=== PATIENT | male | born 1970 | race Caucasian/White ===

== ENCOUNTER 2021-04-04 14:18 | Inpatient (IN) | payer MEDICAID, SELFPAY ==
[2021-04-04] VITALS (71 sets, daily range): BP systolic 108–152; BP diastolic 57–74; PULSE 60–92; RESP 13–42; TEMP 36.2–37.9; O2SAT 91–97
--- NOTE | 2021-04-04 16:00 | DI.RAD_ITS ---
Exam(s) XR PORTABLE CHEST AP EXAM: XR PORTABLE CHEST AP CLINICAL HISTORY: fever, cough, pui. TECHNIQUE: 2D digital imaging was performed. COMPARISON: No exams were available for comparison FINDINGS: Heart size is upper normal. The mediastinum is not widened. There are extensive bilateral patchy infiltrates throughout both lungs. No obvious pleural effusions . No pneumothorax. IMPRESSION: Extensive bilateral patchy lung infiltrates. No pleural effusions. DATA REPOSITORY: RADIATION DOSE DELIVERED: All CT scans at this facility use at least one of these dose optimization techniques: automated exposure control; mA and/or kV adjustment per patient size (includes targeted e xams where dose is matched to clinical indication); or iterative reconstruction.
--- NOTE | 2021-04-04 16:00 | RT.EKG_ITS ---
APPROVED REPORT Exam: Resting ECG Reason for Exam: syncope Patient Location: E HR:73 bpm ECG Measurements Heart Rate 73 AXIS ND 145 P 55 QRSd 93 QRS 3 QT 377 T 21 QTc 416 Conclusion Sinus rhythm...normal P axis, V-rate 60- 99. Sinus. No STEMI. I have reviewed and interpreted ECG and agree with software generated interpretation.
--- NOTE | 2021-04-04 16:43 | ED.GENADUL_ITS ---
Discharge Plan Disposition Patient Disposition: [facility] INPATIENT Condition: Serious Discharge Details Chief Complaint: SOB Clinical Impression: COVID-19, Respiratory failure Admit Date/Time: 04/04/21 20:08 Admit Provider: Dayton Ponce Attending Provider: Dayton Ponce Primary Care Provider: Shirin Short ED Provider: Stephy Carroll Discharge Data Discharge Date/Time-TO BE ENTERED AT DEPARTURE: 04/04/21 21:28 Medical Decision Making Patient tolerating 1 L of oxygen, hype with ambulation 87% Will need admission for observation Alert, oriented, full CODE STATUS D-dimer 1710, CTA shows bilateral infiltrates with lymphadenitis likely consistent with COVID-19, no pulmonary embolism Diagnostic labs consistent with COVID-19 diagnosis, discussed with Dr. Weaver who is agreeable to admission Medical Records Medical records reviewed: Yes I reviewed the patient's medical records. Lab Data Lab results reviewed: Yes I reviewed the patient's lab results. HPI General Mode of arrival: ambulatory . Date/Time Provider Initiated Documentation: 04/04/21 15:09 . Limitations to Documentation: no limitations . Information obtained by: patient . HPI Narrative: Mass 51-year-old gentleman presents with cough, shortness of breath, fever, and loss of appetite. Symptoms started approximately 14 days ago. Brother sick with similar symptoms. 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 They are not vaccinated. Denies any hemoptysis. States he is unable to ambulate secondary to exertional dyspnea. Denies any current chest pain. Denies prior history of coagulopathy. Denies history of asthma or COPD. Denies recent flights, surgeries, long drives. Subjective fevers. Denies any urinary complaints. Has not attempted any [id number] medications. Does not smoke tobacco. Related Data Home Medications Medication Instructions Recorded Confirmed Unknown [No Known Home Meds] 04/04/21 04/04/21 Allergies Allergy/AdvReac Type Severity Reaction Status Date / Time No Known Allergies Allergy Unverified 04/04/21 14:46 General Stated Complaint: SOB PASCALE: 3 Review of Systems All systems reviewed & are unremarkable except as noted in HPI and below PFSH Social History Smoking/Tobacco Use Status: Never Smoking risk assessment performed?: Yes Alcohol Intake: never Drug use: Never Substance use type: does not use Do you feel safe at home: Yes Do you feel safe in your relationship?: Yes Exam Const General: cooperative, comfortable and no acute distress Orientation: alert and oriented x3 HENMT Mouth: oral mucosae normal Eyes Pupils: PERRL Neck Other: No meningismus Resp Effort & Inspection: normal respiratory effort Auscultation: clear to auscultation bilaterally Cardio Rate: regular rate Rhythm: regular rhythm Other: No murmur GI Inspection: normal to inspection Skin General skin exam: no rashes or lesions noted Neuro General: patient alert and patient oriented x3 Extrem General: normal to inspection Other: No peripheral edema distal pulses intact Course Vital Signs Vital signs: Vital Signs Temperature 36.7 C 04/04/21 14:40 Pulse 92 H 04/04/21 14:40 Respiratory Rate 16 04/04/21 14:40 Blood Pressure 109/73 04/04/21 14:40 Pulse Oximetry 94 04/04/21 14:40 Temperature 36.7 C 04/04/21 14:40 Temperature Source Tympanic 04/04/21 14:40 Pulse 92 H 04/04/21 14:40 Respiratory Rate 16 04/04/21 14:40 Respiratory Effort Non-Labored 04/04/21 14:45 Blood Pressure 109/73 04/04/21 14:40 Blood Pressure Position Sitting 04/04/21 14:40 Pulse Oximetry 94 04/04/21 14:40 Oxygen Delivery Method Room Air 04/04/21 14:40 Oxygen Flow Rate 0 04/04/21 14:40 Pain Level 5 04/04/21 14:40 Critical Care Time Critical Care Time Critical Care Time: Yes Total Critical Care Time: 40 Attestation: 1 L of oxygen, telemetry monitoring, medical surgical admission, diagnostic labs, CTA imaging, hospitalist consultation
[2021-04-04 17:09] LABS: Source Nasal/Nares
[2021-04-04 17:42] LABS: NT-proBNP 17 pg/mL (<300); Troponin I < 0.05 ng/mL (<0.06)
[2021-04-04] MEDS: Dexamethasone 4 MG/ML VIAL 6 MG IVP (17:42)
--- NOTE | 2021-04-04 17:45 | DI.CT_ITS ---
Exam(s) CT CHEST PE CTA EXAM: CT CHEST PE CTA CLINICAL HISTORY: PE, hypoxia, covid. TECHNIQUE: Imaging Protocol: CT angiography of the chest was performed using pulmonary embolus eva col. Multi planar reconstructions were performed. CONTRAST MATERIAL: Intravenous: Omnipaque 350 Contrast volume: 100 cc COMPARISON: No exams were available for comparison FINDINGS: CHEST: PULMONARY ARTERIES: There are no intraluminal filling defects to suggest acute pulmonary emboli. LUNGS: There are relatively symmetrical patchy bilateral infiltrates throughout all segments of both lungs. . No associated pleural effusions. MEDIASTINUM: No obvious hilar adenopathy. Slightly enlarged subcarinal lymph nodes are noted. Visua lized thyroid unremarkable. CARDIAC: Heart size is upper normal. There is no pericardial effusion.Caliber of the thoracic aorta is within normal limits. No dissection. There is no significant shift of the interventricular septum . PARTIALLY VISUALIZED UPPERMOST ABDOMEN: No obvious findings OSSEOUS: No significant osseous lesions.. IMPRESSION: 1. No evidence of acute pulmonary emboli. No evidence of pulmonary infarction.No pleural effusions. 2. The main finding here is extensive bilateral patchy infiltrates which are suspicious for Covid-19 pneumonia. 3. Mildly enlarged subcarinal lymph nodes noted. RADIATION DOSE DELIVERED: 619.53mGy.cm Total DLP DATA REPOSITORY: All CT scans at this facility are submitted to the National Radiology Data Registry (NRDR) Dose Index Registry (DIR) with the [employer] ([employer]). RADIATION OPTIMIZATION: All CT scans at this facility use at least one of these dose optimization te chniques: automated exposure control; mA and/or kV adjustment per patient size (includes targeted exa ms where dose is matched to clinical indication); or iterative reconstruction.
[2021-04-04 17:51] LABS: C-Reactive Protein 5.26 mg/dL (0.0-0.3)
[2021-04-04 17:55] LABS: D-Dimer 1710 ng/mlFEU (<500)
[2021-04-04 18:01] LABS: COVID-19 PCR POSITIVE (Negative)
--- NOTE | 2021-04-04 18:35 | DI.VRAD_ITS ---
PROCEDURE INFORMATION: Exam: XR Chest Exam date and time: 04/04/2021 4:12 PM Age: 51 years old Clinical indication: Other: Fever, cough, pui TECHNIQUE: Imaging protocol: XR of the chest. Views: 1 view. COMPARISON: No relevant prior studies available. FINDINGS: Lungs: Bilateral infiltrative lung disease. Patchy areas of airspace consolidation consistent with a bilateral pneumonitis. Pleural spaces: No pleural effusion. Heart/Mediastinum: Normal heart size. Bones/joints: Degenerative thoracic spine disease. IMPRESSION: 1. Bilateral patchy subsegmental airspace opacifications consistent with a bilateral pneumonitis. 2. No pleural effusions. 3. Degenerative thoracic spine disease. Dictated and Authenticated by: Nicolas Abbott MD. Ordering:ROCK Keyes MD
[2021-04-04 18:39] LABS: Ferritin > 2000 ng/mL (26-388)
[2021-04-04 18:49] LABS: Abs Immature Grans 0.04 10^3/uL (0.0-0.06); HCT 45.6 % (40.0-50.0); HGB 15.2 g/dL (13.5-17.5); MCH 27.9 pg (27.0-33.0); MCHC 33.3 % (32.0-36.0); MCV 83.7 fL (80-95); MPV 10.8 fL (8.0-11.0); Nucleated RBC 0 %; Platelet Count 240 10^3/uL (130-400); RBC 5.45 10^6/uL (4.36-5.78); RDW 12.1 % (11.8-14.1); RDW-SD 36.6 fL; WBC 5.62 10^3/uL (4.4-10.8)
[2021-04-04] MEDS: Omnipaque 350 MG/ML 100 ML BTL IJ (18:54)
[2021-04-04 18:57] LABS: ALT 75 U/L (16-63); AST 77 U/L (15-37); Albumin 3.2 g/dL (3.4-5.0); Alkaline Phosphatase 88 U/L (46-116); Anion Gap 10.8 mmol/L (3-11); BUN 14 mg/dL (7-18); Bilirubin, Total 0.7 mg/dL (0.2-1.0); CO2 28.2 mmol/L (21.0-32.0); CREATININE 1.2 mg/dL (0.70-1.30); Calcium 8.7 mg/dL (8.5-10.1); Chloride 99 mmol/L (98-107); Glucose 96 mg/dL (74-106); Magnesium 2.4 mg/dL (1.8-2.4); Potassium 3.5 mmol/L (3.5-5.1); Sodium 138 mmol/L (136-145); Total Protein 8.4 g/dL (6.4-8.2)
[2021-04-04] MEDS: Normal Saline Flush 10 ML SYR IVP (19:21)
[2021-04-04 19:26] LABS: Absolute Lymphocyte Count 1.18 10^3/uL (1.2-3.4); Absolute Monocyte Count 0.22 10^3/uL (0.1-0.8); Absolute Neutrophil Count 4.22 10^3/uL (1.2-6.7); Atypical Lymphocytes % 3
[2021-04-04 19:27] LABS: Diff Comment Manual Differential; RBC Morphology Normal
--- NOTE | 2021-04-04 19:43 | DI.VRAD_ITS ---
PROCEDURE INFORMATION: Exam: CTA Chest With Contrast Exam date and time: 04/04/2021 5:58 PM Age: 51 years old Clinical indication: Patient HX: Pe, hypoxia, covid TECHNIQUE: Imaging protocol: Computed tomographic angiography of the chest with contrast. 3D rendering (Not supervised by radiologist): MIP and/or 3D reconstructed images were created by the technologist. Radiation optimization: All CT scans at this facility use at least one of these dose optimization techniques: automated exposure control; mA and/or kV adjustment per patient size (includes targeted exams where dose is matched to clinical indication); or iterative reconstruction. Contrast material: OMNIPAQUE 350; Contrast volume: 100 ml; Contrast route: INTRAVENOUS (IV); COMPARISON: CR XR PORTABLE CHEST AP 04/04/2021 5:47 PM FINDINGS: Pulmonary arteries: Pulmonary arteries well opacified. No embolism. Aorta: Thoracic aorta is normal in course and caliber. Lungs: Bilateral diffuse airspace changes with the pattern that could represent COVID-19 pneumonitis. This is of moderate severity. Pleural spaces: No pleural effusion. Heart: Mild cardiac enlargement. No pericardial effusion. Lymph nodes: Right hilar lymph node nonspecific in appearance slightly enlarged at 17 x 12 mm. An additional right hilar lymph node measures 17 x 15 mm. Subcentimeter AP window lymph nodes and left hilar lymph nodes. Bones/joints: Degenerative thoracic spine. No acute fracture. Soft tissues: Unremarkable. IMPRESSION: 1. Bilateral pneumonitis. 2. No pulmonary arterial embolism. 3. No pleural effusion. 4. Mild cardiac enlargement no pericardial effusion. 5. Nonspecific mild right hilar lymph node enlargement. Dictated and Authenticated by: Nicolas Abbott MD. Ordering:ROCK Keyes MD
--- NOTE | 2021-04-04 21:12 | W.PM.HP.N ---
Date of service: 04/04/21 Time of Service: 21:12 Assessment and Plan Assessment and plan (1) COVID-19: Status: Acute Assessment and plan: + Covid-19 pneumonia. Requiring increased supplemental O2 via NC overnight; now on 4L. Encourage proning. Pulmonary consulted. Dexamethasone 6mg IV daily initiated. Remdesivir 200mg IV administered initially, then 100mg IV dialy. Baricitinib 4mg po daily. Vit C, Vit D, zinc supplementation. (2) Respiratory failure: Status: Acute Assessment and plan: Currently stable on supplemental O2 via NC. History of Present Illness History of Present Illness Chief Complaint: Shortness of breath Narrative: This is a 51-year-old male with no reported PMH. He presented to the ED with c/o shortness of breath, cough, fever and loss of appetite; onset of symptoms appx 14 days prior. He endorsed exposure to person who was COVID-19 positive (an employee of the [employer]) His brother presented at the same time and was admitted for COVID-19 pneumonia. He is not vaccinated for COVID-19. He endorsed inability to ambulate secondary to exertional dyspnea. No CP. Denied prior history of coagulopathy. Subjective fevers. He denied smoking tobacco. His initial RA O2 saturation was 91%; decreased into the upper 80's with ambulation. With 1L of supplemental O2 his O2 saturations improved to the mid 90's and he felt less SOA. He tested positive for SARS-CoV-2. Inflammatory markers were elevated. CTA chest showed bilateral infiltrates with lymphadenitis likely consistent with COVID-19, no pulmonary embolism Review of Systems All systems reviewed & are unremarkable except as noted in HPI and below PFSH Social History Smoking/Tobacco Use Status: Never Smoking risk assessment performed?: Yes Alcohol Intake: never Drug use: Never Substance use type: does not use Do you feel safe at home: Yes Do you feel safe in your relationship?: Yes Meds Allergies and Home Medications Allergies Allergy/AdvReac Type Severity Reaction Status Date / Time No Known Allergies Allergy Unverified 04/04/21 14:46 Home Medications Medication Instructions Recorded Confirmed Type Unknown [No Known Home Meds] 04/04/21 04/04/21 History Exam Narrative Exam Narrative: Lying supine. Const General: cooperative, no acute distress and ill appearing Nutritional Appearance: obese Orientation: alert and oriented x3 HENMT Head: normocephalic Ears: hearing grossly normal bilaterally Eyes General: appearance normal, both eyes and all related structures Sclera: sclerae normal Resp Effort & Inspection: normal respiratory effort Auscultation: clear to auscultation bilaterally Cardio Rate: regular rate Rhythm: regular rhythm Heart Sounds: S1 normal and S2 normal GI Inspection: obesity Palpation: soft and nontender Auscultation: normal bowel sounds Skin General skin exam: no rashes or lesions noted Neuro General: no focal motor deficits Cranial Nerves: facial strength normal Cognition: normal cognition Speech: speech normal Extrem General: no pedal edema and no calf tenderness Results Labs Result diagrams: 04/04/21 17:15 04/04/21 17:15 Labs: Laboratory Results - last 24 hr 04/04/21 04/04/21 04/04/21 16:42 17:04 17:15 WBC RBC Hgb Hct MCV MCH MCHC RDW Plt Count MPV Immature Gran % Neutrophils % Lymphocytes % Atypical Lymphs % Monocytes % Eosinophils % Basophils % Nucleated RBC % Absolute Neutrophils Absolute Lymphocytes Absolute Monocytes Absolute Eosinophils Absolute Basophils RBC Morphology D-Dimer Sodium 138 Potassium 3.5 Chloride 99 Carbon Dioxide 28.2 Anion Gap 10.8 BUN 14 Creatinine 1.2 Estimated GFR/1.73 m2 >= 60.00 Glucose 96 Calcium 8.7 Magnesium 2.4 Ferritin > 2000 H Total Bilirubin 0.7 AST 77 H ALT 75 H Alkaline Phosphatase 88 Troponin I C-Reactive Protein 5.26 H NT-Pro-B Natriuret Pep Total Protein 8.4 H Albumin 3.2 L COVID-19 Source Nasal/Nares SARS-CoV-2 (PCR) POSITIVE A* 04/04/21 04/04/21 04/04/21 17:15 17:15 17:15 WBC 5.62 RBC 5.45 Hgb 15.2 Hct 45.6 MCV 83.7 MCH 27.9 MCHC 33.3 RDW 12.1 Plt Count 240 MPV 10.8 Immature Gran % 0.0 Neutrophils % 75.0 Lymphocytes % 18.0 Atypical Lymphs % 3 Monocytes % 4.0 Eosinophils % 0.0 Basophils % 0.0 Nucleated RBC % 0 Absolute Neutrophils 4.22 Absolute Lymphocytes 1.18 L Absolute Monocytes 0.22 Absolute Eosinophils 0.00 Absolute Basophils 0.00 RBC Morphology Normal D-Dimer 1710 H Sodium Potassium Chloride Carbon Dioxide Anion Gap BUN Creatinine Estimated GFR/1.73 m2 Glucose Calcium Magnesium Ferritin Total Bilirubin AST ALT Alkaline Phosphatase Troponin I < 0.05 C-Reactive Protein NT-Pro-B Natriuret Pep Total Protein Albumin COVID-19 Source SARS-CoV-2 (PCR) 04/04/21 17:15 WBC RBC Hgb Hct MCV MCH MCHC RDW Plt Count MPV Immature Gran % Neutrophils % Lymphocytes % Atypical Lymphs % Monocytes % Eosinophils % Basophils % Nucleated RBC % Absolute Neutrophils Absolute Lymphocytes Absolute Monocytes Absolute Eosinophils Absolute Basophils RBC Morphology D-Dimer Sodium Potassium Chloride Carbon Dioxide Anion Gap BUN Creatinine Estimated GFR/1.73 m2 Glucose Calcium Magnesium Ferritin Total Bilirubin AST ALT Alkaline Phosphatase Troponin I C-Reactive Protein NT-Pro-B Natriuret Pep 17 Total Protein Albumin COVID-19 Source SARS-CoV-2 (PCR) Last Vital Signs Temp 36.2 C L 04/04/21 17:02 Pulse 72 04/04/21 20:35 Resp 35 H 04/04/21 20:35 BP 118/63 04/04/21 20:35 Pulse Ox 94 04/04/21 20:35
[2021-04-04] MEDS: Enoxaparin 40 MG/0.4 ML SYR SC (21:57)
[2021-04-05] VITALS (14 sets, daily range): BP systolic 98–118; BP diastolic 55–72; PULSE 52–67; RESP 16–20; TEMP 36–36.5; O2SAT 89–95
[2021-04-05] MEDS: Normal Saline Flush 10 ML SYR IVP ×3 (04:20→09:43)
[2021-04-05 07:28] LABS: Abs Immature Grans 0.04 10^3/uL (0.0-0.06); Absolute Basophil Count 0.01 10^3/uL (0.0-0.2); Absolute Lymphocyte Count 0.67 10^3/uL (1.2-3.4); Absolute Monocyte Count 0.16 10^3/uL (0.1-0.8); Absolute Neutrophil Count 3.16 10^3/uL (1.2-6.7); Basophils % 0.2; HCT 41.5 % (40.0-50.0); Lymphocytes % 16.6; MCH 28.3 pg (27.0-33.0); MCHC 33.7 % (32.0-36.0); MPV 10.2 fL (8.0-11.0); Neutrophils % 78.2; Nucleated RBC 0 %; Platelet Count 254 10^3/uL (130-400); RBC 4.94 10^6/uL (4.36-5.78); RDW 12.1 % (11.8-14.1); RDW-SD 36.5 fL; WBC 4.04 10^3/uL (4.4-10.8)
[2021-04-05 07:36] LABS: ALT 72 U/L (16-63); AST 68 U/L (15-37); Albumin 2.6 g/dL (3.4-5.0); Alkaline Phosphatase 78 U/L (46-116); Anion Gap 9.2 mmol/L (3-11); BUN 19 mg/dL (7-18); Bilirubin, Total 0.6 mg/dL (0.2-1.0); C-Reactive Protein 4.56 mg/dL (0.0-0.3); CO2 27.8 mmol/L (21.0-32.0); CREATININE 0.8 mg/dL (0.70-1.30); Calcium 8.4 mg/dL (8.5-10.1); Chloride 102 mmol/L (98-107); Glucose 128 mg/dL (74-106); Potassium 3.6 mmol/L (3.5-5.1); Sodium 139 mmol/L (136-145); Total Protein 7.4 g/dL (6.4-8.2)
[2021-04-05 07:49] LABS: Diff Comment Agrees w/ Instrument; RBC Morphology Normal
[2021-04-05 07:53] LABS: D-Dimer 1373 ng/mlFEU (<500)
[2021-04-05 08:24] LABS: Ferritin > 2000 ng/mL (26-388)
[2021-04-05] MEDS: Cholecalciferol (Vitamin D3) 1,000 UNIT TAB 2000 UNITS PO (08:40)
[2021-04-05] MEDS: Zinc Sulfate 220 MG TAB PO (08:40)
[2021-04-05] MEDS: Polyethylene Glycol 3350 17 GM PACKET PO (08:41)
[2021-04-05] MEDS: Ascorbic Acid 500 MG TAB 1000 MG PO ×2 (08:41→19:41)
[2021-04-05] MEDS: Dexamethasone 10 MG/ML VIAL 6 MG IVP (08:41)
[2021-04-05 09:36] LABS: Procalcitonin < 0.1 ng/mL
[2021-04-05] MEDS: Famotidine 20 MG TAB PO ×2 (09:43→19:42)
[2021-04-05] MEDS: cefTRIAXone 1 GM/50 ML BAG IVPB (09:43)
[2021-04-05] MEDS: Doxycycline Hyclate 100 MG CAP PO ×2 (09:43→19:42)
--- NOTE | 2021-04-05 15:47 | PGE_ITS ---
Date of Service Date of service: 04/05/21 Time of Service: 15:48 Assessment and Plan Assessment and plan (1) COVID-19: Status: Acute Assessment and plan: + Covid-19 pneumonia. Requiring increased supplemental O2 via NC; now on 4L. Encourage proning. Dexamethasone 6mg IV daily initiated. Remdesivir 200mg IV administered initially, then 100mg IV dialy. Baricitinib 4mg po daily. Vit C, Vit D, zinc supplementation. Atorvastatin 40 mg daily Pepcid 20 mg bid Ceftriaxone 1 gm daily and doxycycline 100 mg bid; if serial procalcitonin levels are negative then will dc his antibiotics prophylaxis dosing of lovenox 40 mg SC daily (2) Respiratory failure: Status: Acute Assessment and plan: Currently stable on supplemental O2 via NC. 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 He feels somewhat better today. he is not dyspneic at rest. He has minimal cough. No sputum production and he is afebrile. He is on oxygen at 4 to 5 LPM per NC. he is able to converse in complete sentences w/out getting dyspneic. He has been using his IS religously. He has been attempting to roll from side to side. I encouraged him to sit up out of bed whenever he is awake and to avoid lying on his back and to prone if he is able to do so. He asked me what my opinion of the vaccines. I explained to him that the vaccine do a good job of preventing COVID-19 and in the cases where people who are vaccinated do get infected, the vaccines usually prevent serious illness and . I also indicated that if society were doing a better job of practicing masking and social distancing that this would help to reduce the spread of the virus. I explained to him the various medications we are using to help fight his viral pneumonia and the inflammation involved. Exam Narrative Exam Narrative: Obese white male who is sitting up in bed in semi-cade position. I encouraged him to sit fully upright w/ his legs dangling over the bed or to sit up in the chair but if he is going to lie in bed then to prone Lungs: bibasilar rales Heart: RRR Abdomen: obese, soft, nontender Extremities: no edema or cyanosis. Objective Last Vital Signs Temp 36.2 C L 04/05/21 08:48 Pulse 62 04/05/21 08:48 Resp 20 04/05/21 08:48 BP 114/67 04/05/21 08:48 Pulse Ox 93 04/05/21 12:23 Laboratory Results - last 24 hr 04/04/21 04/04/21 04/04/21 16:42 17:04 17:15 WBC RBC Hgb Hct MCV MCH MCHC RDW Plt Count MPV Immature Gran % Neutrophils % Lymphocytes % Atypical Lymphs % Monocytes % Eosinophils % Basophils % Nucleated RBC % Absolute Neutrophils Absolute Lymphocytes Absolute Monocytes Absolute Eosinophils Absolute Basophils RBC Morphology D-Dimer Sodium 138 Potassium 3.5 Chloride 99 Carbon Dioxide 28.2 Anion Gap 10.8 BUN 14 Creatinine 1.2 Estimated GFR/1.73 m2 >= 60.00 Glucose 96 Calcium 8.7 Magnesium 2.4 Ferritin > 2000 H Total Bilirubin 0.7 AST 77 H ALT 75 H Alkaline Phosphatase 88 Troponin I C-Reactive Protein 5.26 H NT-Pro-B Natriuret Pep Total Protein 8.4 H Albumin 3.2 L Procalcitonin COVID-19 Source Nasal/Nares SARS-CoV-2 (PCR) POSITIVE A* 04/04/21 04/04/21 04/04/21 17:15 17:15 17:15 WBC 5.62 RBC 5.45 Hgb 15.2 Hct 45.6 MCV 83.7 MCH 27.9 MCHC 33.3 RDW 12.1 Plt Count 240 MPV 10.8 Immature Gran % 0.0 Neutrophils % 75.0 Lymphocytes % 18.0 Atypical Lymphs % 3 Monocytes % 4.0 Eosinophils % 0.0 Basophils % 0.0 Nucleated RBC % 0 Absolute Neutrophils 4.22 Absolute Lymphocytes 1.18 L Absolute Monocytes 0.22 Absolute Eosinophils 0.00 Absolute Basophils 0.00 RBC Morphology Normal D-Dimer 1710 H Sodium Potassium Chloride Carbon Dioxide Anion Gap BUN Creatinine Estimated GFR/1.73 m2 Glucose Calcium Magnesium Ferritin Total Bilirubin AST ALT Alkaline Phosphatase Troponin I < 0.05 C-Reactive Protein NT-Pro-B Natriuret Pep Total Protein Albumin Procalcitonin COVID-19 Source SARS-CoV-2 (PCR) 04/04/21 04/05/21 04/05/21 17:15 06:30 06:30 WBC 4.04 L RBC 4.94 Hgb 14.0 Hct 41.5 MCV 84.0 MCH 28.3 MCHC 33.7 RDW 12.1 Plt Count 254 MPV 10.2 Immature Gran % 1.0 Neutrophils % 78.2 Lymphocytes % 16.6 Atypical Lymphs % Monocytes % 4.0 Eosinophils % 0.0 Basophils % 0.2 Nucleated RBC % 0 Absolute Neutrophils 3.16 Absolute Lymphocytes 0.67 L Absolute Monocytes 0.16 Absolute Eosinophils 0.00 Absolute Basophils 0.01 RBC Morphology Normal D-Dimer Sodium 139 Potassium 3.6 Chloride 102 Carbon Dioxide 27.8 Anion Gap 9.2 BUN 19 H Creatinine 0.8 Estimated GFR/1.73 m2 >= 60.00 Glucose 128 H Calcium 8.4 L Magnesium Ferritin > 2000 H Total Bilirubin 0.6 AST 68 H ALT 72 H Alkaline Phosphatase 78 Troponin I C-Reactive Protein 4.56 H NT-Pro-B Natriuret Pep 17 Total Protein 7.4 Albumin 2.6 L Procalcitonin COVID-19 Source SARS-CoV-2 (PCR) 04/05/21 04/05/21 06:30 06:30 WBC RBC Hgb Hct MCV MCH MCHC RDW Plt Count MPV Immature Gran % Neutrophils % Lymphocytes % Atypical Lymphs % Monocytes % Eosinophils % Basophils % Nucleated RBC % Absolute Neutrophils Absolute Lymphocytes Absolute Monocytes Absolute Eosinophils Absolute Basophils RBC Morphology D-Dimer 1373 H Sodium Potassium Chloride Carbon Dioxide Anion Gap BUN Creatinine Estimated GFR/1.73 m2 Glucose Calcium Magnesium Ferritin Total Bilirubin AST ALT Alkaline Phosphatase Troponin I C-Reactive Protein NT-Pro-B Natriuret Pep Total Protein Albumin Procalcitonin < 0.1 COVID-19 Source SARS-CoV-2 (PCR)
--- NOTE | 2021-04-05 16:27 | INITIAL_ITS ---
- If Service Date Differs Date of service: 04/05/21 Time of Service: 16:28 Care Management Initial Assess REASON FOR HOSPITALIZATION:: Covid-19 Pneumonia PAST MEDICAL HISTORY/PAST SURGICAL HISTORY:: No significant medical history noted in chart. 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 He works with his brother, Judah, and his son. He lives with his son, daughter in law and their two children who are 2 and 3 years old. He is independent at baseline. CURRENT FUNCTIONAL STATUS:: Billy is on Covid 19 precautions, therefore CM was not able to meet with him in person. CM talked to him over the phone. He stated that he is feeling better today, and is working hard to use his IS in the room, as he was instructed. He stated that he is sitting up in his chair. CM discussed proning, if he lays down, as recommended. Per RN, he is very anxious to return home to his farm as three out of the four people who work there are currently sick with Covid. Billy asked about his brother, who is currently admitted to the ICU. Billy asked to update his HIPAA, which CM asked his RN to bring in to him. CM will continue to follow. ADVANCE DIRECTIVES:: Not on file. Has patient been provided with info about the portal/API?: Yes Did the patient sign up for the portal?: No CODE STATUS:: Full Code INSURANCE COVERAGE / FINANCIAL ISSUES:: [employer] CURRENT HOME/COMMUNITY SERVICES/EQUIPMENT:: No current services or equipment. PRIMARY CARE PHYSICIAN:: Shirin Short POTENTIAL DISCHARGE NEEDS:: Follow up appointments. PATIENT/FAMILY EDUCATION NEEDS:: Review discharge instructions regarding activity levels and medications, discussion of self care needs including ask me three. ANTICIPATED BARRIERS TO DISCHARGE:: Oxygen requirements, no O2 at baseline. TRANSPORTATION:: Private vehicle by family. PLAN:: Anticipate Billy will return home with no new services once he is medically cleared by MD. His family will transport him home via private vehicle. He will follow up with his PCP and discharge plan of care. CM will continue to follow.
[2021-04-05 17:28] LABS: Bilirubin Negative (Negative); Blood Trace-intact (Negative); Clarity Clear (Clear); Glucose Negative (Negative); Ketones Negative (Negative); Leukocyte Esterase Negative (Negative); Nitrite Negative (Negative); Specific Gravity 1.025 (1.005-1.025); pH 6.5 (5-8)
[2021-04-05 17:30] LABS: Bacteria Negative HPF (Negative); C & S Indicated? No; Casts Negative LPF (Negative); Crystals Negative HPF (Negative); Epithelial Cells Negative HPF (Negative); Mucus Negative (Negative); Other Cells Negative (Negative); RBC Negative HPF (0-2)
[2021-04-05] MEDS: Atorvastatin 40 MG TAB PO (19:41)
[2021-04-05] MEDS: Enoxaparin 40 MG/0.4 ML SYR SC (21:57)
[2021-04-06 01:44] LABS: Vitamin D 25 Total 9.6 ng/mL (30-100)
[2021-04-06 03:51] VITALS: BP 102/63; PULSE 57; RESP 16; TEMP 36.3; O2SAT 95
[2021-04-06 07:00] VITALS: PULSE 52
[2021-04-06 07:30] VITALS: O2SAT 94
[2021-04-06 07:46] VITALS: BP 94/52; PULSE 55; RESP 18; TEMP 35.6; O2SAT 94
[2021-04-06 07:46] LABS: Abs Immature Grans 0.05 10^3/uL (0.0-0.06); Absolute Basophil Count 0.02 10^3/uL (0.0-0.2); Absolute Eosinophil Count 0.01 10^3/uL (0.0-0.7); Absolute Lymphocyte Count 1.24 10^3/uL (1.2-3.4); Absolute Monocyte Count 0.31 10^3/uL (0.1-0.8); Basophils % 0.4; Eosinophils % 0.2; HGB 13.6 g/dL (13.5-17.5); Immature Grans % 0.9; MCH 28.2 pg (27.0-33.0); Monocytes % 5.5; Nucleated RBC 0 %; Platelet Count 263 10^3/uL (130-400); RBC 4.82 10^6/uL (4.36-5.78); RDW-SD 36.6 fL; WBC 5.63 10^3/uL (4.4-10.8)
[2021-04-06] MEDS: Polyethylene Glycol 3350 17 GM PACKET PO (07:50)
[2021-04-06] MEDS: Zinc Sulfate 220 MG TAB PO (07:50)
[2021-04-06] MEDS: Cholecalciferol (Vitamin D3) 1,000 UNIT TAB 2000 UNITS PO (07:50)
[2021-04-06] MEDS: Doxycycline Hyclate 100 MG CAP PO ×2 (07:50→22:28)
[2021-04-06] MEDS: cefTRIAXone 1 GM/50 ML BAG IVPB (07:50)
[2021-04-06] MEDS: Ascorbic Acid 500 MG TAB 1000 MG PO ×2 (07:51→22:27)
[2021-04-06] MEDS: Normal Saline Flush 10 ML SYR IVP (07:51)
[2021-04-06] MEDS: Famotidine 20 MG TAB PO ×2 (07:51→22:28)
[2021-04-06] MEDS: Dexamethasone 10 MG/ML VIAL 6 MG IVP (07:51)
[2021-04-06 08:06] LABS: ALT 84 U/L (16-63); AST 66 U/L (15-37); Albumin 2.6 g/dL (3.4-5.0); Alkaline Phosphatase 72 U/L (46-116); Anion Gap 7.4 mmol/L (3-11); BUN 17 mg/dL (7-18); Bilirubin, Total 0.5 mg/dL (0.2-1.0); C-Reactive Protein 1.81 mg/dL (0.0-0.3); CO2 27.6 mmol/L (21.0-32.0); CREATININE 0.8 mg/dL (0.70-1.30); Calcium 8.2 mg/dL (8.5-10.1); Chloride 102 mmol/L (98-107); Glucose 103 mg/dL (74-106); Potassium 4.1 mmol/L (3.5-5.1); Sodium 137 mmol/L (136-145); Total Protein 6.4 g/dL (6.4-8.2)
[2021-04-06 08:07] LABS: Troponin I < 0.05 ng/mL (<0.06)
[2021-04-06 08:25] LABS: D-Dimer 849 ng/mlFEU (<500)
[2021-04-06 08:53] LABS: Ferritin 1936 ng/mL (26-388)
[2021-04-06 09:56] LABS: HBs Antibody, Qual Negative (See Note); HBs Antibody, Quant <3.1 mIU/mL (See Note); Hepatitis B Core Antibody Negative (Negative); Hepatitis B surface Ag Negative (Negative); Hepatitis C Ab w Rflx HCV PCR Negative (Negative)
--- NOTE | 2021-04-06 12:40 | PDOC.CMPRO ---
- If Service Date Differs Date of service: 04/06/21 Time of Service: 12:40 Care Management Progress Note S/O: ESTHELA spoke to Billy over the phone today, as he remains on Covid 19 precautions. He reported that he is still on supplemental O2, but that it has been weaned down today. Per report, he was on 4L nasal canula yesterday, unclear what setting it is currently on. Billy asked how long his hospital course is expected to be. CM stated that his participation in treatment is a contributing factor to his recovery including using his IS, moving, proning, etc. He stated that he is compliant with any treatment recommended, as he is anxious to return home. He reports feeling better than when he arrived. CM will continue to follow. A: Luna is a 51 year old male admitted to [facility] on 04/04/21 with Covid 19 Pneumonia. P: Anticipate Billy will return home with no new services once he is medically cleared by . His family will transport him home via private vehicle. He will follow up with his PCP and discharge plan of care. CM will continue to follow.
[2021-04-06 15:01] VITALS: PULSE 63
--- NOTE | 2021-04-06 19:06 | W.PM.PROGNOT ---
Date of Service Date of service: 04/06/21 Time of Service: 19:06 Assessment and Plan Assessment and plan (1) COVID-19: Status: Acute Assessment and plan: + Covid-19 pneumonia. Requiring increased supplemental O2 via NC; now on 5L. Encourage proning. Dexamethasone 6mg IV daily Remdesivir 100mg IV dialy. Baricitinib 4mg po daily. Vit C, Vit D, zinc supplementation. Atorvastatin 40 mg daily Pepcid 20 mg bid Ceftriaxone 1 gm daily and doxycycline 100 mg bid; if serial procalcitonin levels are negative then will dc his antibiotics prophylaxis dosing of lovenox 40 mg SC daily (2) Respiratory failure: Status: Acute Assessment and plan: Currently stable on supplemental O2 via NC. Qualifiers: Chronicity: acute Respiratory failure complication: hypoxia Qualified Code(s): J96.01 - Acute respiratory failure with hypoxia (3) PSVT (paroxysmal supraventricular tachycardia): Status: Acute Assessment and plan: related to hypoxemia and hyperventilation. continue to monitor telemetry while hospitalized Subjective Subjective Interval history since last seen: Luna is doing better today has been practicing proning as well as frequent use of his incentive spirometer he has been sitting up in chair as much as possible. He remains on supplemental oxygen at 5 LPM NC but has not needed HFNC or CPAP. He initally was coughing up some mucous but none now. He had a run of wide complex tachycardia that appeared to be SVT w/ aberrancy. It was short run and asymptomatic and associate w/ him hyperventilating while doing his I.S repeatedly Exam Narrative Exam Narrative: alert and oriented x 3, no respiratory distress, able to talk in complete paragraphs Lungs: clear except for some fine rales at bases posteriorly Heart: RRR Abdomen: benign Legs: no edema Objective Last Vital Signs Temp 35.6 C L 04/06/21 07:46 Pulse 63 04/06/21 15:01 Resp 18 04/06/21 07:46 BP 94/52 L 04/06/21 07:46 Pulse Ox 94 04/06/21 07:46 Laboratory Results - last 24 hr 04/05/21 04/05/21 04/06/21 06:30 06:30 07:18 WBC RBC Hgb Hct MCV MCH MCHC RDW Plt Count MPV Immature Gran % Neutrophils % Lymphocytes % Monocytes % Eosinophils % Basophils % Nucleated RBC % Absolute Neutrophils Absolute Lymphocytes Absolute Monocytes Absolute Eosinophils Absolute Basophils D-Dimer Sodium 137 Potassium 4.1 Chloride 102 Carbon Dioxide 27.6 Anion Gap 7.4 BUN 17 Creatinine 0.8 Estimated GFR/1.73 m2 >= 60.00 Glucose 103 Calcium 8.2 L Ferritin 1936 H Total Bilirubin 0.5 AST 66 H ALT 84 H Alkaline Phosphatase 72 Troponin I < 0.05 C-Reactive Protein 1.81 H Total Protein 6.4 Albumin 2.6 L 25-OH Vitamin D Total 9.6 L Hep Bs Antigen Negative Hep Bs Antibody Negative Hep Bs Antibody, Quant <3.1 Hep B Core Total Ab Negative Hepatitis C Antibody Negative 04/06/21 04/06/21 07:18 07:18 WBC 5.63 D RBC 4.82 Hgb 13.6 Hct 40.0 MCV 83.0 MCH 28.2 MCHC 34.0 RDW 12.0 Plt Count 263 MPV 10.0 Immature Gran % 0.9 Neutrophils % 71.0 Lymphocytes % 22.0 Monocytes % 5.5 Eosinophils % 0.2 Basophils % 0.4 Nucleated RBC % 0 Absolute Neutrophils 4.00 Absolute Lymphocytes 1.24 Absolute Monocytes 0.31 Absolute Eosinophils 0.01 Absolute Basophils 0.02 D-Dimer 849 H Sodium Potassium Chloride Carbon Dioxide Anion Gap BUN Creatinine Estimated GFR/1.73 m2 Glucose Calcium Ferritin Total Bilirubin AST ALT Alkaline Phosphatase Troponin I C-Reactive Protein Total Protein Albumin 25-OH Vitamin D Total Hep Bs Antigen Hep Bs Antibody Hep Bs Antibody, Quant Hep B Core Total Ab Hepatitis C Antibody
[2021-04-06] MEDS: Enoxaparin 40 MG/0.4 ML SYR SC (22:28)
[2021-04-06] MEDS: Atorvastatin 40 MG TAB PO (22:28)
[2021-04-06 22:34] VITALS: BP 117/67; PULSE 54; RESP 19; TEMP 36; O2SAT 92
[2021-04-07] VITALS (7 sets, daily range): BP systolic 102–123; BP diastolic 58–71; PULSE 47–61; RESP 18–20; TEMP 36.1–36.3; O2SAT 93–96
[2021-04-07 06:54] LABS: HCT 38.9 % (40.0-50.0); HGB 12.8 g/dL (13.5-17.5); MCH 27.8 pg (27.0-33.0); MCHC 32.9 % (32.0-36.0); MCV 84.4 fL (80-95); MPV 9.7 fL (8.0-11.0); Nucleated RBC 0 %; Platelet Count 297 10^3/uL (130-400); RBC 4.61 10^6/uL (4.36-5.78); RDW 11.9 % (11.8-14.1)
[2021-04-07 07:12] LABS: ALT 123 U/L (16-63); AST 76 U/L (15-37); Albumin 2.5 g/dL (3.4-5.0); Alkaline Phosphatase 69 U/L (46-116); Anion Gap 7.2 mmol/L (3-11); BUN 15 mg/dL (7-18); Bilirubin, Total 0.5 mg/dL (0.2-1.0); CO2 28.8 mmol/L (21.0-32.0); CREATININE 0.8 mg/dL (0.70-1.30); Calcium 8.3 mg/dL (8.5-10.1); Chloride 103 mmol/L (98-107); Glucose 91 mg/dL (74-106); Sodium 139 mmol/L (136-145); Total Protein 6.9 g/dL (6.4-8.2)
[2021-04-07 07:26] LABS: Absolute Lymphocyte Count 1.45 10^3/uL (1.2-3.4); Absolute Neutrophil Count 3.15 10^3/uL (1.2-6.7); Atypical Lymphocytes % 4; Bands % 1; Diff Comment Manual Differential; RBC Morphology Normal
[2021-04-07 07:38] LABS: D-Dimer 696 ng/mlFEU (<500)
[2021-04-07 08:05] LABS: Ferritin 1644 ng/mL (26-388)
[2021-04-07] MEDS: Cholecalciferol (Vitamin D3) 1,000 UNIT TAB 2000 UNITS PO (08:34)
[2021-04-07] MEDS: Normal Saline Flush 10 ML SYR IVP (08:34)
[2021-04-07] MEDS: Polyethylene Glycol 3350 17 GM PACKET PO (08:34)
[2021-04-07] MEDS: cefTRIAXone 1 GM/50 ML BAG IVPB (08:35)
[2021-04-07] MEDS: Famotidine 20 MG TAB PO ×2 (08:35→22:15)
[2021-04-07] MEDS: Ascorbic Acid 500 MG TAB 1000 MG PO ×2 (08:35→22:15)
[2021-04-07] MEDS: Zinc Sulfate 220 MG TAB PO (08:35)
[2021-04-07] MEDS: Doxycycline Hyclate 100 MG CAP PO ×2 (09:45→22:15)
[2021-04-07] MEDS: Dexamethasone 10 MG/ML VIAL 6 MG IVP (09:45)
[2021-04-07 14:24] LABS: HIV-1/2 Ag & Ab Screen Negative (Negative)
--- NOTE | 2021-04-07 14:38 | W.PM.PROGNOT ---
Date of Service Date of service: 04/07/21 Time of Service: 14:38 Assessment and Plan Assessment and plan (1) COVID-19: Status: Acute Assessment and plan: Although I was under the impression that the patient was receiving baricitinib as well as Remdesivir in addition to his Decadron I reviewed his medication list and in fact he is not receiving either the baricitinib or Remdesivir however he has been receiving the Decadron. At this time the patient is showing significant improvement on Decadron along with his postural exercises including proning and lying on his side as well as his incentive spirometry use. As the patient's oxygen needs have decreased I do not feel it necessary to start the patient on baricitinib and Remdesivir at this time. Patient will continue to receive Decadron 6 mg daily. (2) Respiratory failure: Status: Acute Assessment and plan: Currently stable on supplemental O2 via NC at 4 L/min and improving. Qualifiers: Chronicity: acute Respiratory failure complication: hypoxia Qualified Code(s): J96.01 - Acute respiratory failure with hypoxia (3) PSVT (paroxysmal supraventricular tachycardia): Status: Acute Assessment and plan: related to hypoxemia and hyperventilation. continue to monitor telemetry while hospitalized. No further arrhythmias. Rhythm is sinus to sinus bradycardia. Subjective Subjective Interval history since last seen: Patient is doing markedly better. He is down to 4 L/min per nasal cannula. He has no dyspnea and minimal to no cough. No sputum production no fever. He denies any lightheadedness or dizziness. He has been religiously using his incentive spirometer and Acapella device. He is hoping to get home soon [place]. Exam Narrative Exam Narrative: Middle-aged white male alert and oriented person place time circumstance. He is able to talk in complete paragraphs with no dyspnea and no coughing. Lungs are clear to auscultation there is only the faintest of basilar rales Heart is regular rate and rhythm Abdomen soft and nontender Lower extremities without peripheral cyanosis or edema Objective Last Vital Signs Temp 36.3 C L 04/07/21 08:45 Pulse 61 04/07/21 08:45 Resp 18 04/07/21 08:45 BP 102/60 04/07/21 08:45 Pulse Ox 94 04/07/21 08:45 Laboratory Results - last 24 hr 04/07/21 04/07/21 04/07/21 06:30 06:30 06:30 WBC 5.00 RBC 4.61 Hgb 12.8 L Hct 38.9 L MCV 84.4 MCH 27.8 MCHC 32.9 RDW 11.9 Plt Count 297 MPV 9.7 Immature Gran % 0.0 Neutrophils % 62.0 Band Neutrophils % 1 Lymphocytes % 25.0 Atypical Lymphs % 4 Monocytes % 8.0 Eosinophils % 0.0 Basophils % 0.0 Nucleated RBC % 0 Absolute Neutrophils 3.15 Absolute Lymphocytes 1.45 Absolute Monocytes 0.40 Absolute Eosinophils 0.00 Absolute Basophils 0.00 RBC Morphology Normal D-Dimer 696 H Sodium 139 Potassium 4.0 Chloride 103 Carbon Dioxide 28.8 Anion Gap 7.2 BUN 15 Creatinine 0.8 Estimated GFR/1.73 m2 >= 60.00 Glucose 91 Calcium 8.3 L Ferritin 1644 H Total Bilirubin 0.5 AST 76 H ALT 123 H Alkaline Phosphatase 69 C-Reactive Protein 0.80 H Total Protein 6.9 Albumin 2.5 L
--- NOTE | 2021-04-07 14:45 | W.NUTRFU ---
Date of service: 04/07/21 Time of Service: 14:45 Nutrition Note NOTE: Excellent PO intake on low sodium nutrition therapy. Weight is stable. BMI is 32.5 kg/m2. No nutritional risk at this time. Will continue to follow his progress. Time Spent in Nutritional Counseling and Treatment: 0
--- NOTE | 2021-04-07 18:03 | PDOC.CMPRO ---
- If Service Date Differs Date of service: 04/07/21 Time of Service: 18:03 Care Management Progress Note S/O: Per report, Billy continues to improve, and is currently stable on 4L O2 via NC. He has been following the regiment provided to him by his MD, RN and RT, and is hoping to be discharged soon. Unclear at this time if he will be discharged on home O2, or if he will continue to be weaned of his supplemental O2 while being monitored inpatient. CM will continue to follow. A: Luna is a 51 year old male admitted to [facility] on 04/04/21 with Covid 19 Pneumonia. P: Anticipate Billy will return home with no new services once he is medically cleared by MD. His family will transport him home via private vehicle. He will follow up with his PCP and discharge plan of care. CM will continue to follow.
[2021-04-07] MEDS: Atorvastatin 40 MG TAB PO (22:15)
[2021-04-07] MEDS: Enoxaparin 40 MG/0.4 ML SYR SC (22:15)
[2021-04-08] VITALS (7 sets, daily range): BP systolic 111–126; BP diastolic 62–71; PULSE 48–61; RESP 18; TEMP 36.3–36.6; O2SAT 94–95
[2021-04-08 07:49] LABS: HCT 38.3 % (40.0-50.0); HGB 12.7 g/dL (13.5-17.5); MCH 28.1 pg (27.0-33.0); MCHC 33.2 % (32.0-36.0); MCV 84.7 fL (80-95); MPV 9.7 fL (8.0-11.0); Nucleated RBC 0 %; Platelet Count 311 10^3/uL (130-400); RBC 4.52 10^6/uL (4.36-5.78); RDW 11.8 % (11.8-14.1); RDW-SD 36.1 fL; WBC 6.19 10^3/uL (4.4-10.8)
[2021-04-08 08:11] LABS: ALT 143 U/L (16-63); AST 68 U/L (15-37); Albumin 2.5 g/dL (3.4-5.0); Alkaline Phosphatase 66 U/L (46-116); Anion Gap 5.9 mmol/L (3-11); BUN 14 mg/dL (7-18); Bilirubin, Total 0.5 mg/dL (0.2-1.0); C-Reactive Protein 0.34 mg/dL (0.0-0.3); CO2 29.1 mmol/L (21.0-32.0); CREATININE 0.7 mg/dL (0.70-1.30); Calcium 8.4 mg/dL (8.5-10.1); Chloride 105 mmol/L (98-107); Glucose 87 mg/dL (74-106); Potassium 4.2 mmol/L (3.5-5.1); Sodium 140 mmol/L (136-145); Total Protein 6.8 g/dL (6.4-8.2)
[2021-04-08 08:32] LABS: D-Dimer 529 ng/mlFEU (<500)
[2021-04-08 08:34] LABS: Absolute Eosinophil Count 0.06 10^3/uL (0.0-0.7); Absolute Lymphocyte Count 1.92 10^3/uL (1.2-3.4); Absolute Monocyte Count 0.19 10^3/uL (0.1-0.8); Bands % 0; Diff Comment Manual Differential; Myelocytes % 2; RBC Morphology Normal
[2021-04-08 09:19] LABS: Ferritin 1420 ng/mL (26-388)
[2021-04-08 09:33] LABS: Procalcitonin < 0.1 ng/mL
[2021-04-08] MEDS: Cholecalciferol (Vitamin D3) 1,000 UNIT TAB 2000 UNITS PO (09:54)
[2021-04-08] MEDS: Zinc Sulfate 220 MG TAB PO (09:54)
[2021-04-08] MEDS: Dexamethasone 10 MG/ML VIAL 6 MG IVP (09:54)
[2021-04-08] MEDS: Polyethylene Glycol 3350 17 GM PACKET PO (09:54)
[2021-04-08] MEDS: Famotidine 20 MG TAB PO ×2 (09:54→21:38)
[2021-04-08] MEDS: Ascorbic Acid 500 MG TAB 1000 MG PO ×2 (12:38→21:37)
--- NOTE | 2021-04-08 17:25 | W.PM.PROGNOT ---
Date of Service Date of service: 04/08/21 Time of Service: 17:26 Assessment and Plan Assessment and plan (1) COVID-19: Status: Acute Assessment and plan: The patient is improving rapidly on dexamethasone alone. He is not on remdesivir or baricitinib at this time. Continue IS/acapella, dexamethasone, weaning O2 as tolerated. Anticipate discharge home tomorrow. (2) Respiratory failure: Status: Acute Assessment and plan: O2 has been weaned down to 0.5 L today. Will assess exercise oximetry - aniticipate discharge home tomorrow. Qualifiers: Chronicity: acute Respiratory failure complication: hypoxia Qualified Code(s): J96.01 - Acute respiratory failure with hypoxia (3) Sinus bradycardia: Status: Acute Assessment and plan: Check TSH. Asymptomatic. Continue cardiac monitoring (4) PSVT (paroxysmal supraventricular tachycardia): Status: Acute Assessment and plan: Agree that this occured in setting of hypoxemia and hyperventilation. No episodes of arrhythmias overnight. Continue to monitor on tele. (5) DVT prophylaxis: Status: Acute Assessment and plan: SC enoxaparin (6) Discharge planning issues: Status: Acute Assessment and plan: Full code Anticipate discharge tomorrow Subjective Subjective Interval history since last seen: I'm feeling really good! Everything feels better. BMs are more normal, urinary output is better. I don't have to drink as much water now. Appetite has picked up. Senses of taste and smell are normal, food tastes really good. No shortness of breath, occasional cough, once in a great while. Slept alternating sides. Tried sleeping on the belly. Has not been sleeping on his back. On 0.5 L of O2 at this time and is asking to go home tomorrow. Exam Narrative Exam Narrative: Today's visit with the patient was conducted over the phone as he is rapidly clinically improving and has a diagnosis of COVID-19. General: Fluent speech, no dyspnea/tachypnea, appropriate speech pattern/content, able to complete lengthy sentences without needing to stop to rest. Objective Last Vital Signs Temp 36.6 C 04/08/21 12:39 Pulse 61 04/08/21 12:39 Resp 18 04/08/21 12:39 BP 126/65 04/08/21 12:39 Pulse Ox 95 04/08/21 12:39 Laboratory Results - last 24 hr 04/08/21 04/08/21 04/08/21 06:30 07:20 07:20 WBC 6.19 RBC 4.52 Hgb 12.7 L Hct 38.3 L MCV 84.7 MCH 28.1 MCHC 33.2 RDW 11.8 Plt Count 311 MPV 9.7 Immature Gran % Neutrophils % 63.0 Band Neutrophils % 0 Lymphocytes % 31.0 Monocytes % 3.0 Eosinophils % 1.0 Basophils % 0.0 Myelocytes % 2 Nucleated RBC % 0 Absolute Neutrophils 3.90 Absolute Lymphocytes 1.92 Absolute Monocytes 0.19 Absolute Eosinophils 0.06 Absolute Basophils 0.00 RBC Morphology Normal D-Dimer 529 H Sodium 140 Potassium 4.2 Chloride 105 Carbon Dioxide 29.1 Anion Gap 5.9 BUN 14 Creatinine 0.7 Estimated GFR/1.73 m2 >= 60.00 Glucose 87 Calcium 8.4 L Ferritin 1420 H Total Bilirubin 0.5 AST 68 H ALT 143 H Alkaline Phosphatase 66 C-Reactive Protein 0.34 H Total Protein 6.8 Albumin 2.5 L Procalcitonin 04/08/21 07:20 WBC RBC Hgb Hct MCV MCH MCHC RDW Plt Count MPV Immature Gran % Neutrophils % Band Neutrophils % Lymphocytes % Monocytes % Eosinophils % Basophils % Myelocytes % Nucleated RBC % Absolute Neutrophils Absolute Lymphocytes Absolute Monocytes Absolute Eosinophils Absolute Basophils RBC Morphology D-Dimer Sodium Potassium Chloride Carbon Dioxide Anion Gap BUN Creatinine Estimated GFR/1.73 m2 Glucose Calcium Ferritin Total Bilirubin AST ALT Alkaline Phosphatase C-Reactive Protein Total Protein Albumin Procalcitonin < 0.1
[2021-04-08] MEDS: Atorvastatin 40 MG TAB PO (21:38)
[2021-04-08] MEDS: Enoxaparin 40 MG/0.4 ML SYR SC (21:39)
[2021-04-09 03:37] VITALS: BP 116/70; PULSE 52; RESP 18; TEMP 35.7; O2SAT 95
[2021-04-09] MEDS: Cholecalciferol (Vitamin D3) 1,000 UNIT TAB 2000 UNITS PO (07:30)
[2021-04-09] MEDS: Zinc Sulfate 220 MG TAB PO (07:30)
[2021-04-09] MEDS: Famotidine 20 MG TAB PO (07:30)
[2021-04-09] MEDS: Ascorbic Acid 500 MG TAB 1000 MG PO (07:31)
[2021-04-09] MEDS: Normal Saline Flush 10 ML SYR IVP (07:32)
[2021-04-09] MEDS: Polyethylene Glycol 3350 17 GM PACKET PO (07:32)
[2021-04-09] MEDS: Dexamethasone 10 MG/ML VIAL 6 MG IVP (07:33)
[2021-04-09 07:37] VITALS: BP 107/58; PULSE 58; RESP 16; TEMP 36.1; O2SAT 95
[2021-04-09 08:16] LABS: C-Reactive Protein 0.32 mg/dL (0.0-0.3); TSH (W/Ref FT4) 1.58 uIU/mL (0.36-3.74)
[2021-04-09 08:41] LABS: D-Dimer 451 ng/mlFEU (<500)
--- NOTE | 2021-04-09 11:00 | RESPIRATORY ---
1030 Performed exercise oximetry w/pateint. Room air SpO2 93% resting. Room air SpO2 89% while exercising. Pt briskly walked approx. 300ft without shortness of breath or any stops. Pt required no recovery time and had no complaints of shortness of breath during evaluation.
[2021-04-09 11:08] VITALS: PULSE 78; PULSE 88; PULSE 93; RESP 12; RESP 16; O2SAT 88; O2SAT 91; O2SAT 93
[2021-04-09 11:43] VITALS: BP 113/63; PULSE 58; RESP 18; TEMP 36.3; O2SAT 95
--- NOTE | 2021-04-09 12:44 | W.PM.DS.N ---
Date of service: 04/09/21 Time of Service: 12:44 DS: Diagnosis Discharge Diagnosis (1) COVID-19: Status: Acute (2) Respiratory failure: Status: Resolved (3) Sinus bradycardia: Status: Chronic (4) PSVT (paroxysmal supraventricular tachycardia): Status: Resolved Discharge Plan Disposition Patient Disposition: HOME Condition: Improving Discharge Details Reason For Visit: Covid-19 Pneumonia Admit Date/Time: 04/04/21 20:08 Admit Provider: Dayton Ponce Attending Provider: Dayton Ponce Primary Care Provider: Shirin Short [facility] Hospital Course: Mr Caba is a 51 year old male with no known PMHx except obesity with BMI of 32.5 kg/m2, not previously vaccinated against COVID-19, who was admitted to [facility] hospitalist service on 04/04/21 for acute hypoxic respiratory failure and pneumonia due to COVID-19. He had first started experiencing symptoms around 03/24/21. While in the ED, he only required 1L of O2, by the time he arrived to the floor, he needed 4L of O2. His maximum oxygen requirement was 5L of O2 by [place]. Pulmonary embolism was ruled out with a CTA of the chest. He responded very well to the corticosteroid therapy as well as proning/IS/vibrapep. He did not receive remdesivir, but improved quite well without it. He was noted to have sinus bradycardia during this admission as well as an episode of PSVT, which happened at the time of hypoxemia. He did not have recurrences of PSVT, but bradycardia (mid-high 50s) remains at the time of discharge while the patient is asymptomatic. This may very well be his normal resting heart rate. As an outpatient, the patient should follow up with his PCP for extended cardiac monitoring. He is medically stable for discharge home today, having passed exercise oxymetry testing on room air. He is being discharged with a dexamethasone taper as well as with a pulse oxymeter with instructions to return to the hospital should his O2 sat drop below 90% and stay there. Care for patient as well as completion of his discharge summary on day of discharge took 45 minutes. Home Meds and New Rx's Prescriptions: New ascorbic acid (vitamin C) [Vitamin C] 500 mg Tablet 1,000 mg PO BID Qty: 12 RF: 0 famotidine 20 mg Tablet 20 mg PO BID Qty: 6 RF: 0 cholecalciferol (vitamin D3) 25 mcg (1,000 unit) Tablet 2,000 units PO DAILY Qty: 6 RF: 0 levalbuterol tartrate 45 mcg/actuation Hfa Aerosol Inhaler 2 puff inhalation Q6H PRN PRNQty: 0 RF: 0 dexamethasone 4 mg tablet See Rx Instructions .ROUTE .COMPLEX Qty: 3 RF: 0 Discharge Instructions Instructions: Famotidine (By mouth), Levalbuterol (By breathing), Dexamethasone (By mouth), COVID-19 (Coronavirus Disease 2019) (DC) Additional Instructions: Return to the hospital with any fever, bleeding, chest pain, shortness of breath, or if your oxygen saturations on pulse oxymeter drop below 90% (for more than just a few seconds). You can check your pulse oxymetry anytime you feel short of breath and otherwise at random 3-4 times/daily for the next week. Finish your dexamethasone taper as prescribed. You should continue to prone and rest (and abstain from physical labor) for the next two days. You don't have to self-isolate past the next two days. Follow up with your PCP in 1-2 weeks. You can (and should) get vaccinated against COVID-19 three weeks after your recovery. Referrals: Shirin Short [Primary Care Provider] - Activity:: Activity as Tolerated Equipment/Supplies:: pulse oxymeter Diet:: As Tolerated Discharge Orders Discharge Orders: Discharge Order (Routine); Ordered 04/09/21 Ordered By: Letty Hutchison DS: Summary Time Spent with Patient providing and/or coordinating discharge services: Greater than 30 minutes Status at Discharge Functional status at discharge: independent ambulation Overall status at discharge: patient is progressing back to baseline Mental Status: mental status grossly normal Speech and Movement: speech and movement normal Mood: congruent mood Affect: normal affect Exam Narrative Exam Narrative: Today's visit with the patient was conducted over the phone as he is rapidly clinically improving and has a diagnosis of COVID-19. General: Fluent speech, no dyspnea/tachypnea, appropriate speech pattern/content, able to complete lengthy sentences without needing to stop to rest. Psych Mental Status: mental status grossly normal Speech and Movement: speech and movement normal Mood: congruent mood Affect: normal affect DS: Data Vitals/I&O Vitals and I&O: Vital Signs Temperature 36.3 C L 04/09/21 11:43 Temperature Source Tympanic 04/09/21 11:43 Pulse 58 L 04/09/21 11:43 Pulse Rhythm Regular 04/09/21 08:00 Pulse 61 04/04/21 21:20 Respiratory Rate 18 04/09/21 11:43 Respiratory Effort 04/09/21 08:00 Respiratory Depth Normal 04/09/21 08:00 Respiratory Pattern Normal 04/09/21 08:00 Blood Pressure 113/63 04/09/21 11:43 Blood Pressure Mean 72 04/04/21 21:21 Blood Pressure Position Sitting 04/04/21 14:40 Pulse Oximetry 95 04/09/21 11:43 Oxygen Delivery Method Room Air 04/09/21 11:43 Oxygen Flow Rate 0 04/09/21 11:43 Pain Level 0 04/09/21 11:43 Comment 04/08/21 12:39 Intake & Output 04/09/21 04/09/21 04/09/21 00:59 11:59 23:59 Intake Total Balance Intake: Oral Other: Urine Color Urine Appearance Comment Stool Size Stool Characteristics Voiding Methods Data Completed and Pending Completed studies during hospitalization [Text1]: CXR: Extensive bilateral patchy lung infiltrates. No pleural effusions. CTA chest: 1. No evidence of acute pulmonary emboli. No evidence of pulmonary infarction.No pleural effusions. 2. The main finding here is extensive bilateral patchy infiltrates which are suspicious for Covid-19 pneumonia. 3. Mildly enlarged subcarinal lymph nodes noted. Labs on day of discharge: Labs from last 24 hours 04/09/21 04/09/21 06:50 06:50 D-Dimer 451 C-Reactive Protein 0.32 H TSH 1.58 PFSH Social History Smoking/Tobacco Use Status: Never Smoking risk assessment performed?: Yes Alcohol Intake: never Drug use: Never Substance use type: does not use Do you feel safe at home: Yes Do you feel safe in your relationship?: Yes
--- NOTE | 2021-04-09 14:13 | PDOC.CMDIS ---
LACE Index Scoring Tool - Questions: Length of Stay (in days): 4 - 6 Acuity (Admit via E.D.?): Yes E.D. Visits: 1 - Answers: Total Score: 8 Risk of Readmission: Low Risk Care Management Discharge Reason for Hospitalization: Covid-19 Pneumonia Discharge Plan: Billy will discharge to home with no additional services at this time. His family will transport him home via private vehicle. He will follow up with his PCP and discharge plan of care. Patient/Family Education Needs: Review discharge instructions, discuss Ask Me Three.
== END 2021-04-09 15:05 | disposition home or self-care (01) | DRG 177 ==
LOC: ER 21:22 → MS 21:27
PROVIDERS: Internal Medicine; Admitting Provider Family Medicine; Emergency Provider Physician Assistant; PCP Internal Medicine; Visit Provider Family Medicine
DX: U07.1 COVID-19 (principal); J96.01 Acute respiratory failure with hypoxia; J12.82 Pneumonia due to coronavirus disease 2019; I47.1 Supraventricular tachycardia; E66.9 Obesity, unspecified; Z68.32 Body mass index [BMI] 32.0-32.9, adult
CPT/HCPCS: 36415; 71275; 80053; 82306; 84145; 86704; 86706; 86803; 87340; 87389; 87635; 93005; 96374; 99291; J1650; 71045; 81003; 81015; 82728; 83735; 83880; 84443; 84484; 85025; 85379; 86140; 93010; 99223; 99231; 99232; 99239; J0696; J1100; J3490; J8540

== ENCOUNTER 2021-05-24 01:50 | Outpatient (CLI) | payer MEDICAID, SELFPAY ==
--- NOTE | 2021-05-24 15:15 | DI.CT_ITS ---
Exam(s) CT CHEST W EXAM: CT CHEST W CLINICAL HISTORY: SUBCARINAL LYMPHADENOPATHY TECHNIQUE: Imaging Protocol: Axial computed tomography images with coronal and sagittal reformatted images were created and reviewed CONTRAST MATERIAL: Intravenous: Omnipaque 350 Contrast volume:structured data in ml. COMPARISON: CT CT CHEST PE CTA from 04/04/[address] CHEST PE CTA from 04/04/2021 CR,XR XR PORTABLE CHEST AP from 04/04/2021 FINDINGS: Tracheobronchial tree: No bronchiectasis or mucous plugging. Mediastinum and Nevaeh: No dominant adenopathy or fluid collection. Pulmonary parenchyma: Diffuse mild ground-glass opacities bilaterally with significant improvement wh en compared with the previous exam. No consolidation or dominant measurable mass. Pleura: No effusion or pneumothorax. Heart: The heart is not dilated. No coronary artery calcifications are seen. Aorta: Thoracic aorta non-dilated. Upper abdomen: Unremarkable. Lymph nodes: Within normal limits. Previous exam showed mildly enlarged subcarinal adenopathy. This has resolved. Bones: Normal. Soft tissues: Unremarkable. IMPRESSION: Significant interval improvement of bilateral infiltrates as well as subcarinal adenopathy. Minimal residual bilateral ground-glass opacities persist.. RADIATION DOSE DELIVERED: 696.83mGy.cm Total DLP DATA REPOSITORY: All CT scans at this facility are submitted to the National Radiology Data Registry (NRDR) Dose Index Registry (DIR) with the [employer] [place] [employer] [employer] (ACR). RADIATION OPTIMIZATION: All CT scans at this facility use at least one of these dose optimization te chniques: automated exposure control; mA and/or kV adjustment per patient size (includes targeted exa ms where dose is matched to clinical indication); or iterative reconstruction.
[2021-05-24] MEDS: Omnipaque 350 MG/ML 100 ML BTL IJ (15:47)
== END 2021-05-24 02:10 ==
PROVIDERS: PCP Internal Medicine; Visit Provider Internal Medicine
DX: R91.8 Other nonspecific abnormal finding of lung field (principal); R59.0 Localized enlarged lymph nodes
CPT/HCPCS: 71260; J3490

== ENCOUNTER 2023-12-25 07:42 | Outpatient (CLI) | payer MEDICAID, SELFPAY ==
[2023-12-25 07:52] VITALS: BP 136/86; PULSE 62; RESP 20; TEMP 36.7; O2SAT 98
[2023-12-25 08:20] VITALS: PULSE 60; RESP 20; O2SAT 95
--- NOTE | 2023-12-25 08:28 | DI.RAD_ITS ---
Exam(s) XR PAIN CLINIC LUMBAR SP 2V EXAM: XR PAIN CLINIC LUMBAR SP 2V CLINICAL HISTORY: Lumbar Radiculopathy TECHNIQUE: 2D and realtime digital imaging was performed. CONTRAST MATERIAL: Refer to procedure report. COMPARISON: No exams were available for comparison FINDINGS: Fluoroscopy was provided for Dr. Molina during the performance of a lumbar epidural steroid injection. Please refer to the procedure report for complete details. Ka,r=10.2 mGy IMPRESSION: RADIATION DOSE DELIVERED: 0.0 0.0 0
[2023-12-25 08:29] VITALS: BP 146/86; PULSE 59
[2023-12-25] MEDS: Omnipaque 240 MG/ML 50 ML BTL IJ (08:35)
[2023-12-25] MEDS: Epidural Tray 1 EACH MC (08:35)
[2023-12-25] MEDS: methylPREDNISolone ACETATE 80 MG/ML VIAL IJ (08:36)
--- NOTE | 2023-12-25 14:49 | PDOC.PAIN_ITS ---
Date of service: 12/25/23 Time of Service: 09:00 Pain Managment Procedure Note Procedure Note Procedure Note: PROCEDURE NOTE LUMBAR EPIDURAL STEROID INJECTION Date of Service: December 25, 2023 Patient:Luna De JR? Provider: Devaughn Molina DO, MPH Luna Caba JR has been referred to the [facility] for a lumbar epidural steroid injection. Pre-operative diagnosis: Lumbosacral Radiculopathy Post-operative diagnosis: Same Pre-Procedure Pain: VAS= 6 /10 Comments: He was a direct referral from his spine Luna was interviewed and the medical record was reviewed.? There were no medical, pharmacologic, radiographic or other structural contraindications to attempting fluoroscopically guided Lumbar epidural steroid injection.? Risks, potential side effects, indications, and potential benefits of the procedure were reviewed with Luna.? Questions and concerns were addressed.? After it was clear that Luna was fully informed about the procedure, the printed consent form was signed by the patient and myself.? Luna was placed in the prone position on the fluoroscopy table and automated blood pressure cuff and pulse oximeter applied. The skin entry point for entering/approaching the epidural space for the lumbar epidural steroid injection was marked. Following thorough chlorhexadine preparation of the skin and draping and 1% lidocaine infiltration of the skin entry point and subcutaneous tissues, an 18 gauge Touhy needle was placed and advanced under fluoroscopic guidance and with loss of resistance technique into the L5-S1 epidural space. Needle tip placement and depth were aided and confirmed by fluoroscopy. There was no paresthesia or return of blood or CSF through the needle. 1 mls of Omnipaque 240 was injected with clear epidural spread confirmed with fluoroscopy. 80 mg of Depo-Medrol was? injected. This was followed by 1 ml of preservative-free normal saline to flush the steroid out of the needle. There was no unusual discomfort expressed by Luna. The needle was withdrawn without difficulty. (49 mls of Omnipaque was wasted) Luna was observed and was without hemodynamic, neurologic, or allergic reactions.? Fluoroscopic images were digitally archived. Luna's vital signs were stable throughout the procedure and were as recorded in nursing records. Follow up plans and appointments were discussed with Luna. Post procedure instruction was given as documented in nursing records and having met discharge criteria Luna was discharged from the [facility]. COMMENTS: No apparent complications. Post-procedure pain: VAS= 0/10. Luna to contact [facility] as needed. If at least 50% improvement in pain and/or function for at least 3 months is achieved, this procedure can be repeated. I personally performed this entire procedure. DEVAUGHN MOLINA DO, MPH ABPMR-subspecialty board certification in Pain Medicine [facility]
== END 2023-12-25 07:43 | disposition home or self-care (01) ==
LOC: PC 07:42
PROVIDERS: PCP Internal Medicine; Visit Provider Preventive Medicine Occupational Medicine
DX: M54.17 Radiculopathy, lumbosacral region (principal)
CPT/HCPCS: 62323; 72100; J1010; Q9967